=== PATIENT | female | born 1965 | race Caucasian/White ===

== ENCOUNTER 2021-08-19 08:35 | Emergency (ER) | payer BC, OTHER ==
[2021-08-19 08:51] VITALS: BP 157/88; PULSE 77; TEMP 97.8; BMI 32.4
[2021-08-19] MEDS ORDERED: DICYCLOMINE HCL 20 MG TABLET PO ONE (09:01)
[2021-08-19] MEDS ORDERED: PANTOPRAZOLE SODIUM 40 MG VIAL IVPB ONE (09:01)
[2021-08-19] MEDS ORDERED: ONDANSETRON 4 MG/2 ML VIAL IVPUSH ONE (09:01)
[2021-08-19] MEDS ORDERED: MAG HYDROX/AL HYDROX/SIMETH 30 ML UNIT-DOSE CUP PO ONE (09:03)
[2021-08-19] MEDS ORDERED: DICYCLOMINE HCL 10 MG CAPSULE ONE (09:23)
[2021-08-19] MEDS ORDERED: ONDANSETRON 4 MG/2 ML VIAL ONE (09:23)
[2021-08-19] MEDS ORDERED: MAG HYDROX/AL HYDROX/SIMETH 30 ML UNIT-DOSE CUP ONE (09:23)
[2021-08-19] MEDS ORDERED: PANTOPRAZOLE SODIUM 40 MG VIAL ONE (09:23)
[2021-08-19 10:11] LABS: BASO % 0.8 % (0-2.0); EOS % 1.2 % (0-4.5); HEMATOCRIT 44.6 % (32.4-45.2); HEMOGLOBIN 15.5 GM/dL (10.7-15.3); LYMPH % 20.1 % (8-40); MCHC 34.7 g/dl (32.0-36.0); MEAN CELL VOLUME 95.1 fl (80-96); MEAN PLT VOLUME 8.3 fl (7.5-11.1); MONO % 6.2 % (3.8-10.2); NEUT % 71.7 % (42.8-82.8); PLATELET COUNT 266 10^3/uL (134-434); RBC 4.69 M/mm3 (3.60-5.2); RDW 12.3 % (11.6-15.6); WHITE BLOOD COUNT 5.5 K/mm3 (4.0-10.0)
[2021-08-19 10:33] LABS: CALCIUM 9.2 mg/dL (8.5-10.1)
[2021-08-19 10:34] LABS: BLOOD UREA NITROGEN 12.1 mg/dL (7-18)
[2021-08-19 10:37] LABS: CREATININE 0.7 mg/dL (0.55-1.3)
[2021-08-19 10:38] LABS: BILIRUBIN,TOTAL 0.5 mg/dL (0.2-1); TOT PROT 7.6 g/dl (6.4-8.2)
[2021-08-19 10:58] LABS: EPI CELLS 32 /uL (0-25.1); HYALINE CASTS 1 /uL (0-3.1); PH,URINE 5.5 (5.0-8.0); URINE APPEARANCE CLEAR; URINE BACTERIA 13 /uL (0-1359); URINE BILIRUBIN NEGATIVE (NEGATIVE); URINE COLOR YELLOW; URINE GLUCOSE (UA) NEGATIVE (NEGATIVE); URINE KETONE TRACE (NEGATIVE); URINE LEUK ESTERASE TRACE (NEGATIVE); URINE NITRITE NEGATIVE (NEGATIVE); URINE PROTEIN NEGATIVE (NEGATIVE); URINE RBC 16 /uL (0-23.9); URINE UROBILINOGEN 0.2 mg/dL (0.2-1.0); URINE WBC 41 /uL (0-25.8)
== END 2021-08-19 11:38 | disposition home or self-care (01) ==
LOC: JER 08:35
PROC: 3E033GC Introduction of Other Therapeutic Substance into Peripheral Vein, Percutaneous Approach (ICD-10-PCS; principal; 2021-08-19)
PROC: 3E033GC Introduction of Other Therapeutic Substance into Peripheral Vein, Percutaneous Approach (ICD-10-PCS; 2021-08-19)
DX: K21.9 Gastro-esophageal reflux disease without esophagitis (principal)
CPT/HCPCS: 36415; 76705-TC; 80053; 81003; 83690; 85025; 87086; 93005; 93010; 99285-25